=== PATIENT | male | born 1940 | race Caucasian/White ===

== ENCOUNTER 2020-06-23 09:02 | Day surgery (SDC) | payer MEDICARE, BC ==
[~2020-06-23 09:02] MED LIST: ALTACE 10MG TAB10 MG PO; ALTACE 5MG5 MG PO; ASPI325T6 PO; ASPIRIN 32325 MG/TAB PO; ASPIRIN 81M81 MG/TA2 PO; B-12 500 MCG PO; CENTRUM SILVER1 CTB PO; CHONDROITIN PO; COREG 3.123.125 MG/T PO; COREG 6.256.25 MG/TA PO; CRESTOR 10MG10 MG PO; EFFIENT10 MG PO; FISH OIL 1000MG1 CAP PO; FISH OIL SUPER1 SGL PO; FLOMAX 0.40.4 MG/CAP PO; FOLIC ACID800 MCG PO; GLUCOSAMIN 500 PO; GLUCOSAMINE 1000 PO; GLUCOSAMINE HC500 MG PO; ISOSORBIDE MON120 MG PO; LIPITOR20 MG PO; MASON NATURAL G1 CAP PO; MEGACE ORAL40 MG/ML PO; NITRO-DUR0.4 MG/PAT TD; NORVASC2.5 MG PO; RANEXA 500MG T500 MG PO; TENORMIN 2525 MG/TAB PO; TENORMIN 5050 MG/TAB PO; VITAMIN B-12100 MCG PO; ZOCOR 20MG20 MG PO; ZOCOR 40MG40 MG PO; [UNRECOGNIZED DRUG - OTHER] PO
--- NOTE | 2020-06-23 09:35 | NUR ---
Patient admitted to room 1 per wheelchair and transfers with use of cane. Alert and to time, person, and place. Patient is unable to state why he is here and is unable to tell me about his surgery. States I'm not having any blood in my urine now and it has all cleared and does not want to proceed with surgery. Son called and patient talks to the son the telephone and tells his son that he is not going to have the surgery and wants him to come and pick him up. Attempted to explain to patient how the surgery will help with diagnosising why he had the blood in urine and continues to refuse. States that he does not want this done. Asks to go home. Dr. Genao's office notified that patient is refusing and wants to go home. Son is waiting in the lobby and patient taken to the vehicle per wheelchair and assisted into van. Informed patient and son that he should talk with his father and obtain information for power of deputy attorney general so he is able to help make decisions for his father and be able to give consents for medical treatments. Son agrees to do this.
== END 2020-06-23 09:35 | disposition home or self-care (01) ==
LOC: SDCO 09:02
DX: R39.15 Urgency of urination (principal); R31.0 Gross hematuria; C61 Malignant neoplasm of prostate; I25.10 Atherosclerotic heart disease of native coronary artery without angina pectoris; E78.5 Hyperlipidemia, unspecified; I10 Essential (primary) hypertension; Z79.84 Long term (current) use of oral hypoglycemic drugs; Z91.048 Other nonmedicinal substance allergy status; Z53.8 Procedure and treatment not carried out for other reasons
CPT/HCPCS: J0690; J1100; J2405; J2704; J3010